=== PATIENT | male | born 1985 | race American Indian/Alaskan Native ===

== ENCOUNTER 2020-04-11 16:42 | Emergency (ER) | payer SELFPAY ==
--- NOTE | 2020-04-11 19:06 | Emergency Department Report ---
ED General Adult HPI - General Chief complaint: Chest Pain Stated complaint: CHEST PAINS Time Seen by Provider: 04/11/20 18:57 Source: patient Mode of arrival: Ambulatory Limitations: No Limitations - History of Present Illness Initial comments: 34-year-old -[place] male no sniffing past medical history presents emerged department complaining of left-sided sternal chest pain worse with deep breath and range of motion. Of an unknown etiology. Ports no fever, chills, sweats no hemoptysis no hematemesis no hematochezia no trauma to his knowledge does work a lot of lifting pushing and pulling and thinks that may have exploded all exacerbated his pain Location: chest Radiation: non-radiation Quality: aching, dull Consistency: constant Improves with: none Worsens with: none, movement (And deep breath) Associated Symptoms: chest pain. denies: malaise, nausea/vomiting, shortness of breath Treatments Prior to Arrival: none - Related Data Previous Rx's Medication Instructions Recorded Last Taken Type Ketorolac [Toradol] 10 mg PO Q6H PRN #10 tablet 04/11/20 Unknown Rx Allergies Allergy/AdvReac Type Severity Reaction Status Date / Time No Known Allergies Allergy Unverified 04/11/20 16:47 ED Review of Systems ROS: Stated complaint: CHEST PAINS Other details as noted in HPI Comment: All other systems reviewed and negative ED Past Medical Hx - Past Medical History Previous Medical History?: No - Surgical History Past Surgical History?: No - Social History Smoking Status: Never Smoker Substance Use Type: None - Medications Home Medications: Home Medications Medication Instructions Recorded Confirmed Last Taken Type Ketorolac [Toradol] 10 mg PO Q6H PRN #10 tablet 04/11/20 Unknown Rx ED Physical Exam - General Limitations: No Limitations General appearance: alert, in no apparent distress - Head Head exam: Present: atraumatic, normocephalic - Eye Eye exam: Present: normal appearance, PERRL, EOMI Pupils: Present: normal accommodation - ENT ENT exam: Present: mucous membranes moist - Neck Neck exam: Present: normal inspection - Respiratory Respiratory exam: Present: normal lung sounds bilaterally, chest wall tenderness (Significant tenderness with palpation on the left sternal border. Pain to this region also with opposed adduction as well.). Absent: respiratory distress - Cardiovascular Cardiovascular Exam: Present: regular rate, normal rhythm. Absent: systolic murmur, diastolic murmur, rubs, gallop - GI/Abdominal GI/Abdominal exam: Present: soft, normal bowel sounds - Rectal Rectal exam: Present: deferred - Extremities Exam Extremities exam: Present: normal inspection - Back Exam Back exam: Present: normal inspection - Neurological Exam Neurological exam: Present: alert, oriented X3 - Psychiatric Psychiatric exam: Present: normal affect, normal mood - Skin Skin exam: Present: warm, dry, intact, normal color. Absent: rash ED Course Vital Signs 04/11/20 16:49 Temperature 97.6 F Pulse Rate 71 Respiratory 18 Rate Blood Pressure 134/83 [Right] O2 Sat by Pulse 97 Oximetry ED Medical Decision Making - Radiology Data Radiology results: report reviewed Referring Physician:SHERRIE MURILLOPatient Name:ROYAL GODOYPatient ID:[id number] of :[id number]:MaleAccession:[id number] Date:[id number] Status:Finalized Findings [address] [address] XRay Report Signed Patient: ROYAL GODOY MR#: [id number] : 1985 Acct:[id number] Age/Sex: 34 / M ADM Date: 04/11/20 Loc: ED Attending Dr: Ordering Physician: PALMER RODNEY Date of Service: 04/11/20 Procedure(s): XR chest routine 2V Accession Number(s): [id number] cc: PALMER RODNEY Fluoro Time In Minutes: XR chest routine 2V INDICATION / CLINICAL INFORMATION: left chest pain. COMPARISON: None available. FINDINGS: SUPPORT DEVICES: None. HEART / MEDIASTINUM: No significant abnormality. LUNGS / PLEURA: No significant pulmonary or pleural abnormality. No pneum othorax. ADDITIONAL FINDINGS: No significant additional findings. IMPRESSION: 1. No acute findings. Signer Name: Shira Hua MD Signed: 04/11/2020 7:50 PM Workstation Name: [id number] Transcribed By: ELIZABETH Dictated By: SHIRA CAAL MD Electronically Authenticated By: SHIRA CAAL MD Signed Date/Time: 04/11/201949 DD/ 49 TD/TT: Critical care attestation.: If time is entered above; I have spent that time in minutes in the direct care of this critically ill patient, excluding procedure time. ED Disposition Clinical Impression: Costochondritis Disposition: DC- TO HOME OR SELFCARE Is pt being admited?: No Does the pt Need Aspirin: No Condition: Stable Instructions: Costochondritis Prescriptions: Ketorolac [Toradol] 10 mg PO Q6H PRN #10 tablet PRN Reason: Pain Referrals: [facility] [Provider Group] - 3-5 Days
--- NOTE | 2020-04-11 19:54 | XRay Report ---
XR chest routine 2V INDICATION / CLINICAL INFORMATION: left chest pain. COMPARISON: None available. FINDINGS: SUPPORT DEVICES: None. HEART / MEDIASTINUM: No significant abnormality. LUNGS / PLEURA: No significant pulmonary or pleural abnormality. No pneumothorax. ADDITIONAL FINDINGS: No significant additional findings. IMPRESSION: 1. No acute findings. Signer Name: Rey Hua MD Signed: 04/11/2020 7:50 PM Workstation Name: [id number]
[2020-04-12 08:23] VITALS: BP 112/71
== END 2020-04-11 20:35 | disposition home or self-care (01) ==
LOC: ED 16:42
DX: M94.0 Chondrocostal junction syndrome [Tietze] (principal); Z79.899 Other long term (current) drug therapy
CPT/HCPCS: 71046